=== PATIENT | female | born 1990 | race Two or more races ===

== ENCOUNTER 2024-08-19 07:52 | Inpatient (IN) | payer MEDICAID ==
[~2024-08-19] VITALS: Ht 162.6 cm; Wt 72.6 kg
[2024-08-19] MEDS ORDERED: LIDOCAINE 2%HCL (LOCAL ANESTH.) INJ 20ML MDV ONE (08:04)
[2024-08-19] MEDS ORDERED: METHYLERGONOVINE MALEATE 0.2 MG/ML AMP IM ONE (08:05)
[2024-08-19] MEDS ORDERED: LACT. RINGERS/OXYTOCIN 20UNITS 1,000 ML IV ONE (08:11)
[2024-08-19] MEDS ORDERED: LACTATED RINGER'S 1,000 ML IV SCH (08:15)
[2024-08-19] MEDS ORDERED: LIDOCAINE 2%HCL (LOCAL ANESTH.) INJ 20ML MDV IJ PRN (08:15)
[2024-08-19] MEDS ORDERED: LACT. RINGERS/OXYTOCIN 20UNITS 500 ML IV ONE ×4 (08:15→10:00)
--- NOTE | 2024-08-19 08:37 | DVHHP2 ---
OB CC & HPI Date Date of Admission: Aug 19, 2024 Patient Identification: : 5 Para: 5 EDC: Aug 22, 2024 EGA: 41WKS Chief Complaints: Reason for admission: active labor Admission Nurse Assessment Rev: No History of Present Complaints PT REPORTS LIMITED CARE,PT HAD DELIVERY AT HOME AND BROUGHT OVER BY PARAMEDICS BUT PLACENTA WAS INSIDE NOT DELIVERED Past Medical History Cardiac: No pertinent Hx Pulmonary: No pertinent Hx Central Nervous System: No pertinent Hx GI: No pertinent Hx Hemotology/Oncology: No pertinent Hx Hepatobiliary: No pertinent Hx Psychiatric: No pertinent Hx Musculoskeletal: No pertinent Hx Rheumotologic: No pertinent Hx Infectious Disease: No peritnent Hx ENT: No pertinent Hx Renal/: No pertinent Hx Endocrine: No pertinent Hx Dermatology: No pertinent Hx Past Surgical History: No pertinent Hx OB History OB History Care: Limited Care Ultrasounds: No ultrasounds Obstetrical Complications: None Medical Complications: None Allergies: Coded Allergies: NO KNOWN ALLERGIES (Unverified , 08/19/24) Current Medications Current Medications Medications (Trade) Dose Ordered Sig/Saqib Route PRN Reason Start Time Stop Time Status Last Admin Lactated Ringer's 1,000 ml @ 125 mls/hr Q8H IV 08/19/24 08:15 UNV Witch Angela (Tucks) 1 pad PRN PRN TOP PERINEAL AREA DISCOMFORT 08/19/24 08:15 UNV Sodium Lauryl Sulfate (Phisoderm) 240 ml PRN PRN TOP PERINEAL AREA DISCOMFORT 08/19/24 08:15 UNV Benzocaine (Dermoplast) 1 applic PRN PRN TOP PERINEAL AREA DISCOMFORT 08/19/24 08:15 UNV Lidocaine HCl (Xylocaine) 20 ml ONCE PRN IJ PERINEAL AREA DISCOMFORT 08/19/24 08:15 UNV Family & Social History Family/Social History Blood Type: Unknown Rubella: unknown RPR/VDRL: Unknown GBS Status: Unknown HBsAG: Unknown Review of Systems Constitutional: No symptom reported Ears, Nose, & Throat: No symptom reported Eyes: No symptom reported Pulmonary/Respiratory: No symptom reported Cardiovascular: No symptom reported Gastrointestinal: No symptom reported Genitourinary: No symptom reported Musculoskeletal: No symptom reported Skin: No symptom reported Psychiatric: No symptom reported Endocrine: No symptom reported Hemotologic/Lymphatic: No symptom reported OB Admission Exam Physical Exam HEENT: TMs Normal, Fontanelles Normal, Nasal Mucosa Normal, Eyes non-injected, Oropharynx Normal, PERRLA, Moist Membranes, EOMI Heart: Rhythm Normal Lungs: Clear Abdomen: Non tender Extremities: Normal Reflexes: Normal OB Plan Plan Admitting Diagnosis: BOA Plan: Expectant Management Other Plan: INFORMED CONSENT OBTAINED,PLACENTA WILL BE DLIVERED Visit Coding OBGYN Date of Service: Aug 19, 2024 Billing Provider: GOLD WRIGHT DO ASSOCIATE MEDICAL DIRECTOR Common Visit Codes: [id number] OBS CARE (HIGH) GOLD WRIGHT DO Aug 19, 2024 08:37
--- NOTE | 2024-08-19 08:40 | LDN2 ---
Labor and Delivery Note Date 08/19/24 Age 34 5 Para 5 EDC 7-9 EGA 39 WKS Diagnosis S/P DELIVERYAT HOME,RETAINED PLACENTA Vaginal Delivery: VTX Vacuum Assisted: No Placenta: Spontaneous Sex: Male Apgars 9-9 Amniotic Fluid: Clear Anesthesia NA Episiotomy: No Extension: Yes (1ST DGE PERINEAL LAC ) Repaired with PT REFUSED SUTURING EBL 300ML Complications NONE Conditions STABLE Comments/Significant Med Jack SPEC EXAM NO CXAL LAC,REFUSED REPAIR OF 1ST DEG PERINEAL LAC . PLACENTA DEL INTACT Visit Coding OBGYN Date of Service: Aug 19, 2024 Billing Provider: GOLD WRIGHT DO STEREOPTICIAN Common Visit Codes: [id number] OBS CARE (HIGH) STEREOPTICIAN Procedure Codes: 32824-[id number] DELIVERY ONLY GOLD WRIGHT DO Aug 19, 2024 08:40
[2024-08-19 09:07] LABS: Hemoglobin 10.8 g/dL (12.2-16.2); Mean Corpuscular Hemoglobin 24.5 pg (28.0-32.0); Nucleated Red Blood Cells % 0.0 %
[2024-08-19 09:08] LABS: Hematocrit 33.6 % (36.0-46.0); Mean Corpuscular Volume 76.1 fL (80.0-100.0)
[2024-08-19 09:20] LABS: Protein, Urine 13.8 mg/dL (1-14)
[2024-08-19 09:25] LABS: INR 0.94 (0.9-1.15); Partial Thromboplastin Time 30.8 SEC (24.5-34.5); Prothrombin Time 10.0 sec (9.3-11.8)
[2024-08-19 09:26] LABS: Alanine Aminotransferase 14 U/L (7-40); Albumin 3.9 g/dL (3.2-4.8); Anion Gap 7 (5-15); BUN/Creatinine Ratio 16.4 (10.0-20.0); Bilirubin, Total 0.5 mg/dL (0.2-1.0); Carbon Dioxide 23 mmol/L (20-31); Chloride 106 mmol/L (98-107); Glucose 80 mg/dL (74-106); Potassium 4.2 mmol/L (3.5-5.1); Sodium 136 mmol/L (136-145); Total Protein 6.4 g/dL (5.7-8.2); Uric Acid 3.3 mg/dL (3.1-7.8)
[2024-08-19] MEDS ORDERED: ONDANSETRON HCL 4 MG/2 ML VIAL IV PRN (09:30)
[2024-08-19 09:40] LABS: Urine Protein, UAD Negative (Negative)
[2024-08-19 09:41] LABS: Alkaline Phosphatase 158 U/L (46-116); Amphetamine Screen, Urine Neg (NEGATIVE); Barbiturate Scree,Urine Neg (NEGATIVE); Benzodiazephine Screen, Urine Neg (NEGATIVE); Blood Urea Nitrogen 9 mg/dL (9-23); Calcium 8.5 mg/dL (8.7-10.4); Cannabinoid Screen, Urine Neg (NEGATIVE); Cocaine Screen, Urine Neg (NEGATIVE); Opiate Scree,Urine Neg (NEGATIVE); Phencyclidine Screen, Urine Neg (NEGATIVE)
[2024-08-19] MEDS: PHISODERM TOP SOLN 240ML BTL TOP PRN (10:36)
[2024-08-19] MEDS: WITCH HAZEL-GLYCERIN PAD TOP PRN (10:36)
[2024-08-19] MEDS: DERMOPLAST 60ML BOTTLE TOP PRN (10:36)
[2024-08-19 11:00] VITALS: BP 133/67; PULSE 68; RESP 18; TEMP 97.7; O2SAT 99
[2024-08-19 11:33] VITALS: PULSE 68; RESP 18; O2SAT 99
[2024-08-19 14:55] VITALS: BP 122/69; PULSE 74; RESP 16; TEMP 97.8; O2SAT 100
[2024-08-19] MEDS ORDERED: OXYTOCIN 10UNIT/ML 1ML VIAL IV ONE (16:49)
[2024-08-19] MEDS: IBUPROFEN 600 MG TAB PO PRN (18:32)
[2024-08-19 19:30] VITALS: BP 129/83; PULSE 76; RESP 16; TEMP 97.5; O2SAT 99
[2024-08-19 23:00] VITALS: BP 135/73; PULSE 71; RESP 16; TEMP 98.1; O2SAT 99
--- NOTE | 2024-08-20 01:58 | DVHPN2 ---
Progress Note Date Seen: Aug 20, 2024 Subjective S: Lochia minimal Tolerating regular diet well. Ambulating and voiding well w/o feeling lightheaded or dizzy. Passing flatus but no BM yet. Breast feeding. Contraceptive plan: vital signs Vital Sign Date Time Temp Pulse Resp B/P (MAP) Pulse Ox O2 Delivery O2 Flow Rate FiO2 08/19/24 23:00 98.1 71 16 135/73 (93) 99 98.1 08/19/24 19:30 Room Air Total Intake and Output 08/19/24 08/19/24 08/20/24 15:00 23:00 07:00 Output Total 1100 ml 1200 ml Balance -1100 ml -1200 ml medications Current Medications Medications Dose Ordered Sig/Saqib Route Start Time Stop Time Status Last Admin Dose Admin Lactated Ringer's 1,000 ml @ 125 mls/hr Q8H IV 08/19/24 08:15 Michelle Miller 1 pad PRN PRN TOP 08/19/24 08:15 08/19/24 10:36 1 PAD Sodium Lauryl Sulfate 240 ml PRN PRN TOP 08/19/24 08:15 08/19/24 10:36 240 ML Benzocaine 1 applic PRN PRN TOP 08/19/24 08:15 08/19/24 10:36 1 APPLIC Lidocaine HCl 20 ml ONCE PRN IJ 08/19/24 08:15 Ibuprofen 600 mg Q6HP PRN PO 08/19/24 09:30 08/19/24 18:32 600 MG Acetaminophen 650 mg Q4HP PRN PO 08/19/24 09:30 Ondansetron HCl 4 mg Q4HP PRN IV 08/19/24 09:30 Docusate Sodium 200 mg HS PO 08/19/24 22:00 laboratory and microbiology Laboratory Tests 08/19/24 08:35 Test 08/19/24 08:35 Range/Units Serum Glucose 80 74-106 mg/dL Objective O: A&O x3 NAD. Afebrile, VSS Chest: heart and lung sounds normal. Breasts: Nipples intact w/o cracks or soreness Abdomen: normal BS, soft, non-tender, no rebound or guarding, fundus firm @ U- 1, lochia minimal Perineum:- no edema, or erythema, laceration site with no sign of infection, no bleeding noted Extremities: no edema or tenderness Lochia - minimal Labs: see record Assessment/Plan A/P 34 yo now ppd#1 s/p doing well. Blood Type: O Rh: Positive Breast feeding Rubella Immune Pain control with oral medications Bowel regimen: Increase fluid intake and fiber in diet, Laxative PRN PP BCM Plan: Undecided Discharge Plan: Observe for possible discharge on 07/22/24 if condition remains stable Plan discussed with: Patient, Spouse Visit Coding OBGYN Date of Service: Aug 20, 2024 Billing Provider: CHAN HUYNH CNM TERMINAL GAUGER Common Visit Codes: [id number] INP/OBS CARE(HIGH) CHAN HUYNH CNM Aug 20, 2024 01:58
[2024-08-20] MEDS: DOCUSATE SOD 100 MG CAP PO SCH (02:54)
[2024-08-20] MEDS: ACETAMINOPHEN 325 MG TAB PO PRN (02:54)
[2024-08-20 03:06] VITALS: BP 136/79; PULSE 64; RESP 16; TEMP 97.8; O2SAT 99
[2024-08-20 07:00] VITALS: BP 130/85; PULSE 62; RESP 14; TEMP 97.7; O2SAT 99
[2024-08-20 11:00] VITALS: BP 133/83; PULSE 67; RESP 18; TEMP 97.9; O2SAT 98
[2024-08-20 15:00] VITALS: BP 136/85; PULSE 70; RESP 18; TEMP 97.3; O2SAT 98
[2024-08-20 19:00] VITALS: BP 132/85; PULSE 79; RESP 16; TEMP 97.9; O2SAT 98
[2024-08-20] MEDS: ONDANSETRON ODT 4 MG TAB PO PRN (19:39)
[2024-08-20 23:00] VITALS: BP 127/79; PULSE 64; RESP 16; TEMP 97.9; O2SAT 97
[2024-08-21 03:00] VITALS: BP 143/84; PULSE 68; RESP 16; TEMP 97.9; O2SAT 100
--- NOTE | 2024-08-21 06:01 | DVHPN2 ---
Chief Complaints Patient reports: No new complaints, Feels better Nursing reports: No new complaints, No abdominal pain, No chest pain, No dizziness, No cough Objective Vitals Vital Signs Date Time Temp Pulse Resp B/P (MAP) Pulse Ox O2 Delivery O2 Flow Rate FiO2 08/21/24 03:00 97.9 68 16 143/84 (103) 100 97.9 08/20/24 19:00 Room Air 08/20/24 07:00 0.0 Medications Current Medications Medications (Trade) Dose Ordered Sig/Saqib Route PRN Reason Start Time Stop Time Status Last Admin Ondansetron HCl (Zofran Po) 4 mg Q4HP PRN PO NAUSEA / VOMITING 08/20/24 19:15 08/20/24 19:39 General: Normal Lungs: Normal (Rehab in) Cardiovascular: Normal Abdominal: Normal (A chance that) Musculoskeletal: Normal Extremities: Normal Skin: Normal Neurological: Normal Studies Laboratory Tests 08/19/24 08:35 Test 08/19/24 08:35 Range/Units Serum Glucose 80 74-106 mg/dL Ass/Plan Plan Stable improved, advanced care RICKIE MOORE DO Aug 21, 2024 06:01
[2024-08-21 07:00] VITALS: BP 129/76; PULSE 132; RESP 20; TEMP 98.5; O2SAT 98
[2024-08-21] MEDS ORDERED: IBU600T PO (07:34)
[2024-08-21] MEDS ORDERED: DOCU-265 PO (07:34)
[2024-08-21] MEDS ORDERED: PREN-96 PO (07:34)
--- NOTE | 2024-08-21 07:45 | DVHDS2 ---
Obstetrics Discharge Summary Obstetrics Discharge Summary Date of Admission: Aug 19, 2024 Date of Discharge: Aug 21, 2024 Reason For Admission: Others (BOA, placenta undelivered at arrival) Procedures: NST Intrapartum Procedures: Spontaneous vaginal deliv Procedures: None Operative Complicat: Laceration (first degree Perineal, declined repair) Discharge Diagnosis: Term -Delivered (fundus at U, firm, midline, light lochia) Discharge Information: Activity (Unrestricted), Diet (Routine), Medications (Rx sent), Instructions (Routine), Discharge to (Home), Accompanied by (partner), Discarge date (08/21/24) Visit Coding OBGYN Date of Service: Aug 21, 2024 Billing Provider: KARI CURTIS CNM TELECOMMUNICATIONS CONSULTANT Common Visit Codes: 14392-DYI/OBS DISCH DAY <30MIN KARI CURTIS CNM Aug 21, 2024 07:45
[2024-08-21 11:00] VITALS: BP 132/83; PULSE 83; RESP 16; TEMP 98.2; O2SAT 97
[2024-08-22 01:06] LABS: Chlamydia Trachomatis, NAA Negative (Negative); Neisseria gonorrhoeae, NAA Negative (Negative)
== END 2024-08-21 14:08 | disposition home or self-care (01) | DRG 560 ==
LOC: LDRP 07:52 → UNDOADMIN 08:00 → LDRP 08:00
PROVIDERS: ADMIT Obstetrics & Gynecology; ATTEND Obstetrics & Gynecology
PROC: 10E0XZZ Delivery of Products of Conception, External Approach (ICD-10-PCS; principal; 2024-08-19)
DX: O70.0 First degree perineal laceration during delivery (principal); Z37.0 Single live birth; O73.0 Retained placenta without hemorrhage; Z3A.39 39 weeks gestation of pregnancy
CPT/HCPCS: 36415; 59414; 80053; 80307; 81001; 82570; 84156; 84550; 85025; 85610; 85730; 86703; 86762; 86780; 86803; 86850; 86900; 86901; 87340; 94760; 94762; 96365; 96366; G0378; J2590; Q0162